=== PATIENT | female | born 2000 | race Caucasian/White ===

== ENCOUNTER 2019-12-21 19:39 | Emergency (ER) | payer OTHER ==
[~2019-12-21] VITALS: Ht 167.6 cm; Wt 70.3 kg
[2019-12-21 19:55] VITALS: BP 121/74
[2019-12-21] MEDS ORDERED: CYCLOBENZAPRINE5 MG ORAL (20:18)
[2019-12-21] MEDS ORDERED: NAPROXEN500 M2 ORAL (20:18)
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
[2019-12-21 20:28] VITALS: BP 121/74
== END 2019-12-21 20:28 | disposition home or self-care (01) ==
LOC: EMR 20:15
DX: S16.1XXA Strain of muscle, fascia and tendon at neck level, initial encounter (principal); V43.62XA Car passenger injured in collision with other type car in traffic accident, initial encounter; Y92.410 Unspecified street and highway as the place of occurrence of the external cause; Z88.0 Allergy status to penicillin; Z88.8 Allergy status to other drugs, medicaments and biological substances
CPT/HCPCS: 99282